=== PATIENT | male | born 1995 | race Caucasian/White ===

== ENCOUNTER 2018-03-03 13:42 | Emergency (ER) | payer BC, OTHER ==
[~2018-03-03] VITALS: Ht 165.1 cm; Wt 79.7 kg
[2018-03-03 14:24] LABS: HCT (SEDRATE) 47.8 % (39.2-51.8)
[2018-03-03 15:03] VITALS: BP 119/65
== END 2018-03-03 15:26 | disposition home or self-care (01) ==
LOC: ED 15:20
DX: G44.019 Episodic cluster headache, not intractable (principal); G43.909 Migraine, unspecified, not intractable, without status migrainosus
CPT/HCPCS: 36415; 70450; 85651; 99285